=== PATIENT | female | born 1985 | race Caucasian/White ===

== ENCOUNTER 2020-01-26 05:00 | Inpatient (IN) | payer OTHER ==
[2020-01-26] MEDS ORDERED: ELECTROLYTE-148 SOLN 1,000 ML IV SCH (06:00)
[2020-01-26] MEDS ORDERED: METHYLERGONOVINE MALEATE 0.2 MG/1 ML AMP IM PRN (06:02)
[2020-01-26] MEDS ORDERED: BENZOCAINE 20% 57 GM BOTTLE TP PRN (06:02)
[2020-01-26] MEDS ORDERED: BISACODYL 10 MG SUPP.RECT RC PRN (06:02)
[2020-01-26] MEDS ORDERED: BENZOCAINE 28 GM HEMORRHOIDAL OINTMENT TP PRN (06:02)
[2020-01-26] MEDS ORDERED: WITCH HAZEL 50% (TUCKS) 40 PAD/JAR PAD TP PRN (06:02)
--- NOTE | 2020-01-26 06:12 | HP ---
Past Medical History - Primary Care Physician PCP:: Remedios Matta - Admission Chief Complaint: 34 yrs 39.4 by sono onset LP since 2,00 AM . active labor History of Present Illness: pnc at [address] [place] [address] . panel : O Pos, , varicella immune, rubella immune, hbsg neg, treponoma neg, hiv neg , hep c nr , sickle neg ,pap nilm, hpv neg, gc/ct neg 1 hr gtt 129 , quantiferon neg neg quad screen , nt screen not done 09/14/19 us 20.3 wks edc 01/29/20 sliup, vx , normal anatomy f/u US 30 wks reviewed 12/19/19 gbs neg, hiv neg gc/ct neg History Source: Medical Record Limitations to Obtaining History: No Limitations - Past Medical History BRASS CUTTER: No: Migraine, Seizure Cardiovascular: No: HTN, Murmur Pulmonary: No: Asthma Gastrointestinal: Yes: Other (none known) Hepatobiliary: Yes: Other (none known). No: Hepatitis B, Hepatitis C Renal/: Yes: Other (none) ...: 3 ...Para: 2 (g1 06/11/10 , g2 03/05/[address] [facility] ) ...Term: 2 ...LMP: 05/28/19 (mistaken dates) ...EDC by Dates: 03/03/20 ...EDC by Sono: 01/29/20 (39.3 week by sono ) Heme/Onc: No: Sickle Cell Trait Infectious Disease: Yes: Other (none known) Psych: No: Addictions, Anxiety, Bipolar, Depression, Panic, Psychosis, Schizophrenia, Other Musculoskeletal: Yes: Other (none) Endocrine: No: Diabetes Mellitus, Hypothyroidism - Past Surgical History Past Surgical History: Yes: None Hx Myomectomy: No Hx Transabdominal Cerclage: No - Smoking History Smoking history: Never smoked Have you smoked in the past 12 months: No - Alcohol/Substance Use Hx Alcohol Use: No History of Substance Use: reports: None Home Medications - Allergies Allergies/Adverse Reactions: Allergies Allergy/AdvReac Type Severity Reaction Status Date / Time No Known Allergies Allergy Verified 03/04/12 17:04 - Home Medications Home Medications: Ambulatory Orders Tablet 1 PO DAILY 03/04/12 Nifedipine [Procardia Xl] 30 mg NR DAILY #14 [email or web address] 03/10/12 Physical Exam - Maternity Vital Signs: Vital Signs Temperature 98.5 F 01/26/20 05:00 Pulse Rate 78 01/26/20 05:00 Respiratory Rate 01/26/20 05:00 Blood Pressure 131/84 01/26/20 05:00 O2 Sat by Pulse Oximetry (%) Constitutional: Yes: Well Nourished, Severe Distress HENT: Yes: WNL Neck: Yes: WNL Cardiovascular: Yes: WNL Lungs: Clear to auscultation Breast(s): Yes: Other (not done) - Abdominal Exam/OB Fundal Height: 40 Number of Fetuses: Single Presentation: Vertex (exam at 5.05 AM) Contractions: Yes Regularity: Regular Intensity: Moderate Monitor Mode: External Heart Rate Location: [facility] Category: I Accelerations: Non-Uniform Decelerations: None - Vaginal Exam/OB Vaginal Bleeding: Bloody Show Dilatation (cm): 10cm Effacement (%): 100 Amniotic Membrane Status: Ruptured (arom 5.05 AM) Presentation: Vertex/Position - Physical Exam Musculoskeletal: Yes: WNL Extremities: Yes: WNL. No: Calf Tenderness Integumentary: Yes: WNL, Tattoos Deep Tendon Reflex Grade: Normal +2 ...Motor Strength: WNL Psychiatric: Yes: WNL Problem List - Problems (1) with 39 completed weeks gestation Code(s): Z3A.39 - 39 WEEKS GESTATION OF (2) Labor established Code(s): FMY6456 - Assessment/Plan 34 yrs , 39,3 wks active labor plan deliver vag
[2020-01-26 06:13] VITALS: BMI 28.5
[2020-01-26] MEDS ORDERED: OXYTOCIN 20 UNITS in 0.9% NS 20 UNIT/1,000 ML INFUS.BAG IV SCH (06:15)
[2020-01-26 06:27] LABS: BASO % 0.4 % (0-2.0); EOS % 0.7 % (0-4.5); HEMATOCRIT 35.9 % (32.4-45.2); HEMOGLOBIN 11.9 GM/dL (10.7-15.3); LYMPH % 18.3 % (8-40); MCH 29.5 pg (25.7-33.7); MCHC 33.2 g/dl (32.0-36.0); MEAN CELL VOLUME 88.8 fl (80-96); MEAN PLT VOLUME 9.5 fl (7.5-11.1); MONO % 6.1 % (3.8-10.2); NEUT % 74.5 % (42.8-82.8); PLATELET COUNT 244 K/MM3 (134-434); RBC 4.04 M/mm3 (3.60-5.2); RDW 14.3 % (11.6-15.6); WHITE BLOOD COUNT 7.8 K/mm3 (4.0-10.0)
--- NOTE | 2020-01-26 06:37 | PN ---
Delivery - Delivery Vaginal Delivery: Spontaneous (vag deli vx juan daniel position, shoulder delivery without difficulty . cord blood collected, trivascular cord placenta delievered completely with membranes) Type of Anesthesia: None Episiotomy/Laceration: None EBL (cc): 300 Delivery, Single - Stages of Labor Date 1st Stage Initiatied: 01/26/20 Time 1st Stage Initiated: 02:00 Date 2nd Stage Initiated: 01/26/20 Time 2nd Stage Initiated: 05:00 Date of Delivery: 01/26/20 Time of Delivery: 05:10 Time Placenta Delivered: 05:15 Placenta: Yes: Spontaneous, Uterine Exploration - Condition of Infant Leather Repairer/Hand Sign Writer Present: [place]: Alexander Gannon Infant Gender: Male Weight: 7 lb 12 oz Position: OA Total Hours ROM (Hrs/Mins): 10mins. - 1 Minute Total Score: 9 5 Minutes Total Score: 9 - Feeding Plan Initial Plan: Elected not to breastfeed exclusively throughout hospitalization Remarks - Remarks Remarks: 89yrs 39.3 wks in labor gbs neg intrapartum course unevetful
[2020-01-26 06:38] LABS: INR 0.81 (0.83-1.09); PROTHROMBIN TIME (PATIENT) 9.5 SEC (9.7-13.0)
[2020-01-26 06:41] LABS: ACTIVATED PTT 28.2 SECONDS (25.2-36.5)
[2020-01-26 06:48] LABS: BLOOD UREA NITROGEN 8.4 mg/dL (7-18); CALCIUM 8.7 mg/dL (8.5-10.1); CREATININE 0.4 mg/dL (0.55-1.3); POTASSIUM 3.7 mmol/L (3.5-5.1)
[2020-01-26] MEDS: FERROUS SO4 325 MG TABLET (FP) PO SCH ×2 (09:00→18:11)
[2020-01-26] MEDS: ACETAMINOPHEN 325 MG TABLET (FP) PO PRN ×2 (10:44→23:07)
[2020-01-26] MEDS: PRENATAL VITAMINS W/ FOLIC ACID TABLET (FP) PO SCH (10:44)
[2020-01-26] MEDS: IBUPROFEN 600 MG TABLET (FP) PO PRN ×2 (10:45→23:08)
--- NOTE | 2020-01-27 08:45 | PN ---
Post Progress Note - Subjective Subjective: Pain controlled. [place] < menses. . Ambulating Type of Delivery: Vital Signs: Vital Signs Temperature 98.7 F 01/26/20 22:00 Pulse Rate 59 L 01/26/20 22:00 Respiratory Rate 18 01/26/20 22:00 Blood Pressure 124/63 01/26/20 22:00 O2 Sat by Pulse Oximetry (%) 100 01/26/20 07:30 Uterus: Yes: Fundus below umbilicus Abdomen/GI: Yes: Abdomen soft, Tolerating PO Lochia: Yes: Rubra Lochia, amount: Small Extremities: Yes: Calves non-tender Perineum: Yes: Intact Activity: Ambulating - Labs Labs: CBC WBC 7.8 K/mm3 (4.0-10.0) 01/26/20 05:35 RBC 4.04 M/mm3 (3.60-5.2) 01/26/20 05:35 Hgb 11.9 GM/dL (10.7-15.3) 01/26/20 05:35 Hct 35.9 % (32.4-45.2) 01/26/20 05:35 MCV 88.8 fl (80-96) 01/26/20 05:35 MCH 29.5 pg (25.7-33.7) 01/26/20 05:35 MCHC 33.2 g/dl (32.0-36.0) 01/26/20 05:35 RDW 14.3 % (11.6-15.6) 01/26/20 05:35 Plt Count 244 K/MM3 (134-434) 01/26/20 05:35 MPV 9.5 fl (7.5-11.1) D 01/26/20 05:35 Absolute Neuts (auto) 5.8 K/mm3 (1.5-8.0) 01/26/20 05:35 Neutrophils % 74.5 % (42.8-82.8) 01/26/20 05:35 Lymphocytes % 18.3 % (8-40) D 01/26/20 05:35 Monocytes % 6.1 % (3.8-10.2) 01/26/20 05:35 Eosinophils % 0.7 % (0-4.5) 01/26/20 05:35 Basophils % 0.4 % (0-2.0) 01/26/20 05:35 Nucleated RBC % 0 % (0-0) 01/26/20 05:35 Assessment/Plan 34yo s/p , PPD#1 Routine PP care F/U AM la bs PO pain control D/C to home today or by PPD#2 Lor Coe MD
[2020-01-27 08:56] LABS: BASO % 0.6 % (0-2.0); EOS % 1.7 % (0-4.5); HEMATOCRIT 35.7 % (32.4-45.2); LYMPH % 31.4 % (8-40); MCH 30.2 pg (25.7-33.7); MCHC 33.6 g/dl (32.0-36.0); MEAN CELL VOLUME 89.9 fl (80-96); MEAN PLT VOLUME 8.9 fl (7.5-11.1); MONO % 5.5 % (3.8-10.2); NEUT % 60.8 % (42.8-82.8); PLATELET COUNT 238 K/MM3 (134-434); RBC 3.97 M/mm3 (3.60-5.2); RDW 14.2 % (11.6-15.6); WHITE BLOOD COUNT 7.7 K/mm3 (4.0-10.0)
[2020-01-27] MEDS: FERROUS SO4 325 MG TABLET (FP) PO SCH (09:43)
[2020-01-27] MEDS: PRENATAL VITAMINS W/ FOLIC ACID TABLET (FP) PO SCH (09:43)
[2020-01-27 10:23] VITALS: BP 119/67; PULSE 72; TEMP 98.1
[2020-01-27] MEDS ORDERED: SENNOSIDES/DOCUSATE COMBO (SENNA PLUS) TABLET (UD) PO PRN (22:00)
== END 2020-01-27 14:20 | disposition home or self-care (01) | DRG 560 ==
LOC: JLDR 05:00 → J3W 08:30
PROVIDERS: ADMIT Obstetrics & Gynecology; ATTEND Obstetrics & Gynecology
PROC: 10E0XZZ Delivery of Products of Conception, External Approach (ICD-10-PCS; principal; 2020-01-26)
DX: O80 Encounter for full-term uncomplicated delivery (principal); Z3A.39 39 weeks gestation of pregnancy; Z37.0 Single live birth
CPT/HCPCS: 36415; 59409; 80048; 85025; 85610; 85730; 86780; 86850; 86900; 86901; U0003